=== PATIENT | female | born 1950 | race Caucasian/White ===

== ENCOUNTER → 2017-01-14 | Outpatient (CLI) | payer BC ==
[~2017-01-14] MED LIST: ALPRAZOLAM0.5 M1 PO; AMLODIPINE BESYL5 MG PO; ATIVAN0.5 MG PO; BUPROPION XL300 MG PO; CHOLESTYRAMINE L4 GM PO; DECADRON4 MG PO; FENTANYL1 EAC5 TD; FOLIC ACID1 MG GT; HYDROMORPHONE HC4 MG GT; LEVBID0.375 MG PO; LIPITOR20 MG PO; LOMOTIL TABLET1 EACH PO; LORAZEPAM0.5 MG GT; LORAZEPAM2 MG/1 M1 IV; LORTAB 10 MG-3473 ML PO; MAGIC MOUTHWASH1 ML MM; MORPHINE S10 MG/5 ML PO; NAPROSYN375 MG PO; NAPROXEN375 MG PO; NYSTATIN100000 UN1 PO; OXYCODONE H5 MG/5 ML GT; PANTOPRAZOLE SO20 MG PO; PROCHLORPERAZIN10 MG PO; PROMETHAZINE HC25 M1 PO; PROMETHAZINE12.5 M1 GT; RANITIDINE HCL150 MG PO; SILVADENE20 GM TP; SKELAXIN800 MG PO; SYNTHROID88 MCG PO; UCERIS9 MG PO; WELCHOL625 MG PO; WELLBUTRIN XL150 MG PO; WELLBUTRIN XL300 MG PO; ZANTAC150 MG PO; ZOFRAN ODT4 MG SL; ZOFRAN8 MG GT; [UNRECOGNIZED DRUG - OTHER] PO
== END | disposition home or self-care (01) ==
DX: R13.13 Dysphagia, pharyngeal phase (principal); R13.11 Dysphagia, oral phase; Z85.810 Personal history of malignant neoplasm of tongue
CPT/HCPCS: 92611 GN

== ENCOUNTER 2017-01-19 17:52 | Observation (INO) | payer BC ==
[~2017-01-19] VITALS: Ht 152.4 cm; Wt 62.6 kg
[~2017-01-19 17:52] MED LIST changes: -AMLODIPINE BESYL5 MG PO; -PANTOPRAZOLE SO20 MG PO; -UCERIS9 MG PO
[2017-01-19 19:42] LABS: EOSINOPHIL (%) 1.4 % (0-5); EOSINOPHIL COUNT 0.1 K/uL (0-0.3); HEMATOCRIT 41.7 % (36.0-46.0); IMMATURE GRANULOCYTE (%) 0.2 % (0.0-0.7); INSTRUMENT ABS NEUTROPHIL CT 3.9 K/uL; LYMPHOCYTE COUNT 1.2 K/uL (1.0-2.8); MCH 30.7 PG (29.0-34.0); MCHC 33.1 G/DL (30.0-36.0); MCV 92.7 FL (83-99); MONOCYTE (%) 8.2 % (3-12); MONOCYTE COUNT 0.5 K/uL (0-0.8); NEUTROPHIL (%) 68.7 % (45-76); NEUTROPHIL COUNT 3.9 K/uL (1.8-6.4); PLATELET COUNT 240 K/uL (156-360); RBC DIS.WIDTH-CV 14.2 % (11.8-14.6); RBC DIS.WIDTH-SD 48.2 % (39-53); WHITE BLOOD COUNT 5.6 K/uL (4.1-10.2)
[2017-01-19 19:51] LABS: CHLORIDE 105 mEq/L (99-109); POTASSIUM 3.5 mEq/L (3.7-5.4); SODIUM 144 mEq/L (136-147)
[2017-01-19 19:53] LABS: GLUCOSE 102 mg/dL (70-99)
[2017-01-19 19:55] LABS: ANION GAP 10 MEQ/L (2-14); TOTAL BILIRUBIN 0.2 mg/dL (0.0-1.0)
[2017-01-19 19:57] LABS: ALKALINE PHOSPHATASE 68 IU/L (3-129); GFR ESTIMATE (CALCULATED) 34 mL/min/
[2017-01-19 19:58] LABS: UREA NITROGEN (BUN) 23 mg/dL (9-23)
[2017-01-19 20:05] LABS: TROP-I INTERPRETATION NEGATIVE; TROPONIN-I < 0.01 ng/mL (0.0-0.30)
[2017-01-19 20:30] LABS: ADD MIUA? YES; BILIRUBIN NEGATIVE; BLOOD SMALL; COLOR STRAW ((YELLOW)); GLUCOSE (STRIP) NEGATIVE; KETONES NEGATIVE; LEUKOCYTES NEGATIVE; NITRITE NEGATIVE; PROTEIN (STRIP) NEGATIVE; SPECIFIC GRAVITY 1.006 (1.000-1.030); UROBILINOGEN 0.2 MG/DL (0.2-1.0)
[2017-01-19 20:36] LABS: BACTERIA NONE SEEN /HPF; EPITHELIAL CELLS RARE /HPF; MUCUS TRACE /LPF; RED BLOOD CELLS 0-5 /HPF (0-5); UCUL ADDED? NO; WHITE BLOOD CELLS 0-5 /HPF (0-5)
[2017-01-20 01:30] VITALS: BP 134/75
[2017-01-20] MEDS ORDERED: PANTOPRAZOLE SO20 MG PO (01:32)
[2017-01-20] MEDS ORDERED: UCERIS9 MG PO (01:33)
[2017-01-20 02:12] LABS: TROP-I INTERPRETATION NEGATIVE; TROPONIN-I 0.01 ng/mL (0.0-0.30)
[2017-01-20 04:30] VITALS: BP 160/76
[2017-01-20 08:29] VITALS: BP 107/65
[2017-01-20 12:13] VITALS: BP 103/55
[2017-01-20] MEDS ORDERED: AMLODIPINE BESYL5 MG PO (12:25)
== END 2017-01-20 18:07 | disposition home or self-care (01) ==
LOC: EME 17:52 → EDOF 01-20 00:42 → ENRESERV 01-20 00:43 → 5WEST 01-20 01:29
PROVIDERS: Emergency Medicine; Hospitalist
DX: I12.9 Hypertensive chronic kidney disease with stage 1 through stage 4 chronic kidney disease, or unspecified chronic kidney disease (principal); N18.9 Chronic kidney disease, unspecified; Z85.810 Personal history of malignant neoplasm of tongue; E87.6 Hypokalemia; R42 Dizziness and giddiness; F32.9 Major depressive disorder, single episode, unspecified; Z85.819 Personal history of malignant neoplasm of unspecified site of lip, oral cavity, and pharynx; Z82.49 Family history of ischemic heart disease and other diseases of the circulatory system; Z82.3 Family history of stroke; Z87.891 Personal history of nicotine dependence; Z88.8 Allergy status to other drugs, medicaments and biological substances
CPT/HCPCS: 70450; 70551; 80053; 81003; 82306; 82607; 84439; 84443; 84484; 85025; 93005; 99281; 99285; G0378; J1644; J3480

== ENCOUNTER 2017-01-23 17:22 | Emergency (ER) | payer BC ==
[~2017-01-23] VITALS: Ht 152.4 cm; Wt 63.0 kg
[~2017-01-23 17:22] MED LIST changes: +AMLODIPINE BESYL5 MG PO; +PANTOPRAZOLE SO20 MG PO; +UCERIS9 MG PO
[2017-01-23 19:56] VITALS: BP 112/75
== END 2017-01-23 19:59 | disposition home or self-care (01) ==
LOC: EME 17:22
DX: I10 Essential (primary) hypertension (principal); F41.9 Anxiety disorder, unspecified; K22.2 Esophageal obstruction; R51 Headache; E78.5 Hyperlipidemia, unspecified; Z85.89 Personal history of malignant neoplasm of other organs and systems; Z87.891 Personal history of nicotine dependence
CPT/HCPCS: 99281; 99284